=== PATIENT | male | born 1940 | race Caucasian/White ===

== ENCOUNTER 2018-07-29 08:44 | Observation (INO) | payer MEDICARE, MEDICAID ==
[~2018-07-29 08:44] MED LIST: Buffered Lidocaine 1% SYRIN* 1 ML/SYRINGE INTRADERM ONE; Famotidine IV* 10 MG/ML 2 ML (20 mg) IV ONE; Gabapentin CAP(*) 300 MG PO ONE; Lactated Ringers 1000 ML Bag* 1,000 ML IV SCH; Levalbuterol 0.63MG/3ML NEB* UNIT OF USE INH ONE
--- OUTSIDE RECORDS SUMMARY | 2018-07-29 08:48 | XMS REPORT | Continuity of Care Document ---
:1940 External Reference #:[id number] Author Name Marbella Sandhu Care Team Providers Name Role Phone Brian Benson DO Primary Care Physician Unavailable Payers Date Identification Numbers Payment Provider Subscriber Effective: 2004 Policy Number: [id number] Medicare Fermin Barnes Adina PayID: [id number] [address] [place] [address] Effective: 2015 Policy Number: [id number] [employer] Fermin Holden PayID: [id number] [address] [address] [place] [address] Policy Number: [id number] Medicaid Fermin Holden PayID: [id number] [address] [place] [address] Effective: 2016 Policy Number: [id number] [facility] Fermin Holden Expires: 2018 Group Number: 90% [address] [facility] PayID: [id number] [facility] [address] [place] [address] Onset: 2013 Policy Number: [id number] Controverted Fermin Cameron Adina Group Number: [id number] PayID: [id number] Expires: 2015 Policy Number: [id number] [facility] Fermin Cameron Adina PayID: [id number] [address] [place] [address] Onset: 2013 Policy Number: [id number] [facility] Insurance [facility] Fermin Barnes Adina Group Number: [id number] [address] [address] PayID: [id number] [address] Advance Directives Description No Information Available Problems Date Description Provider Status Onset: 03/09/2015 Full thickness rotator cuff tear Edmundo Nguyen M.D. Active Onset: 06/08/2015 Rotator cuff tear arthropathy Edmundo Nguyen M.D. Active Onset: 10/19/2016 Traumatic arthropathy of the shoulder Edmundo Nguyen M.D. Active region Family History Date Family Member(s) Observation Comments General No Current Problems General Breast Cancer General Heart Disease Social History Type Date Description Comments Sex Unknown Marital Status Lives With Son Occupation Retired Cigarette Use Negative For Quit 11 Years Ago Cigarette Use Quit 25 Years Ago ETOH Use Denies alcohol use Tobacco Use Start: Unknown End: Patient is a former smoker Unknown Recreational Drug Use Denies Drug Use Smoking Status Reviewed: 07/18/18 Patient is a former smoker Exercise Type/Frequency Exercises regularly Allergies, Adverse Reactions, Alerts Date Description Reaction Status Severity Comments 11/28/2012 Penicillin Contact dermatitis Active Medications Medication Date Status Form Strength Qnty SIG Indications Ordering Provider Ultram 04/27/ Active Tablets 50mg 40tab 1-2 by Edmundo 2014 mouthat Patrick, night as M.DKeisha needed, can take with 2 es tylenol Aspirin Low 00/00/ Active Tablets 81mg 30tab 1 po qd Unknown Dose 0000 s Paroxetine HCL 0000/ Active Tablets 10mg 30tab 1 by mouth Unknown 0000 s every day Omeprazole 00/ Active Capsules DR 20mg 90cap 1 by mouth Unknown 0000 s every day Megace Oral 00/ Active Suspension 40mg/ml 1Mont 10 Unknown 0000 h milliliters by mouth every day Tylenol 00/00/ Active Tablets 325mg as needed Unknown 0000 Methotrexate 04/08/ Hx Tablets 2.5mg Shanti Stacy 07/21/ Viral Pham Vit D / Hx 400Iu 1 daily Unknown - 2018 Fish Oil /00/ Hx Unknown - 2017 Levitra 00/ Hx Tablets 10mg 9tabs qd prn Unknown - 2017 Calcium + D3 00/ Hx Tablets 600-200mg 1 pobid Unknown 0000 - -Unit 2013 Vitamin B-12 /00/ Hx Tablets 100mcg 1 by mouth Unknown 0000 - every day 2017 Aspir-Low /00/ Hx Tablets DR 81mg 30tab 1 by mouth Unknown 0000 - s every day 2013 Caltrate 600+D 00/ Hx Chewtabs 600-400mg 1 by mouth Unknown 0000 - -Unit twice a day 2018 Immunizations Description No Information Available Vital Signs Date Vital Result Comment 07/18/2018 8:41am Height 67 inches 5'7" Weight 159.00 lb Heart Rate 68 /min BP Systolic Recheck 140 mmHg BP Diastolic Recheck 86 mmHg Respiratory Rate 16 /min Body Temperature 97.6 F BMI (Body Mass Index) 24.9 kg/m2 07/02/2018 9:36am Height 67 inches 5'7" Weight 159.00 lb Heart Rate 76 /min BP Systolic Recheck 134 mmHg BP Diastolic Recheck 80 mmHg Respiratory Rate 16 /min Body Temperature 98.6 F BMI (Body Mass Index) 24.9 kg/m2 05/28/2018 9:06am Height 67 inches 5'7" Weight 165.00 lb Heart Rate 72 /min BP Systolic Recheck 144 mmHg BP Diastolic Recheck 88 mmHg Respiratory Rate 16 /min Body Temperature 97.7 F BMI (Body Mass Index) 25.8 kg/m2 02/26/2018 9:17am Height 67 inches 5'7" Weight 159.00 lb Heart Rate 76 /min BP Systolic Recheck 132 mmHg BP Diastolic Recheck 84 mmHg Respiratory Rate 16 /min Body Temperature 975.0 F BMI (Body Mass Index) 24.9 kg/m2 01/22/2018 9:13am Height 67 inches 5'7" Weight 159.00 lb Heart Rate 76 /min BP Systolic Recheck 130 mmHg BP Diastolic Recheck 84 mmHg Respiratory Rate 16 /min Body Temperature 97.4 F BMI (Body Mass Index) 24.9 kg/m2 10/25/2017 9:34am Height 67 inches 5'7" Weight 155.00 lb Heart Rate 76 /min BP Systolic Recheck 122 mmHg BP Diastolic Recheck 78 mmHg Respiratory Rate 16 /min Body Temperature 98.0 F BMI (Body Mass Index) 24.3 kg/m2 09/20/2017 8:58am Height 67 inches 5'7" Weight 155.00 lb Heart Rate 80 /min BP Systolic Sitting 122 mmHg sitting, right arm regular cuff BP Diastolic Sitting 60 mmHg sitting, right arm regular cuff Body Temperature 97.5 F BMI (Body Mass Index) 24.3 kg/m2 06/26/2017 9:23am Height 67 inches 5'7" Weight 160.00 lb Heart Rate 80 /min BP Systolic Recheck 128 mmHg BP Diastolic Recheck 84 mmHg Respiratory Rate 16 /min Body Temperature 98.0 F BMI (Body Mass Index) 25.1 kg/m2 05/22/2017 9:22am Height 67 inches 5'7" Weight 155.00 lb Heart Rate 76 /min BP Systolic Recheck 132 mmHg BP Diastolic Recheck 86 mmHg Respiratory Rate 16 /min Body Temperature 98.0 F BMI (Body Mass Index) 24.3 kg/m2 02/20/2017 9:23am Height 65 inches 5'5" Weight 155.00 lb Heart Rate 84 /min BP Systolic Recheck 126 mmHg BP Diastolic Recheck 84 mmHg Respiratory Rate 16 /min Body Temperature 97.8 F BMI (Body Mass Index) 25.8 kg/m2 01/30/2017 7:49am Height 67 inches 5'7" Weight 155.00 lb Heart Rate 88 /min BP Systolic Recheck 126 mmHg BP Diastolic Recheck 82 mmHg Respiratory Rate 16 /min Body Temperature 97.9 F BMI (Body Mass Index) 24.3 kg/m2 10/19/2016 7:49am Height 67 inches 5'7" Weight 155.00 lb Heart Rate 76 /min BP Systolic Recheck 132 mmHg BP Diastolic Recheck 84 mmHg Respiratory Rate 16 /min Body Temperature 97.7 F BMI (Body Mass Index) 24.3 kg/m2 07/27/2016 7:50am Height 67 inches 5'7" Weight 160.00 lb Heart Rate 76 /min BP Systolic Recheck 126 mmHg BP Diastolic Recheck 84 mmHg Respiratory Rate 16 /min Body Temperature 98.3 F BMI (Body Mass Index) 25.1 kg/m2 06/22/2016 8:24am Height 67 inches 5'7" Weight 160.00 lb Heart Rate 80 /min BP Systolic Recheck 128 mmHg BP Diastolic Recheck 82 mmHg Respiratory Rate 16 /min Body Temperature 98.4 F BMI (Body Mass Index) 25.1 kg/m2 03/28/2016 8:13am Height 68 inches 5'8" Weight 130.00 lb Heart Rate 80 /min BP Systolic Recheck 142 mmHg BP Diastolic Recheck 86 mmHg Respiratory Rate 16 /min Body Temperature 98.0 F BMI (Body Mass Index) 19.8 kg/m2 02/08/2016 8:41am Height 67 inches 5'7" Weight 160.00 lb Heart Rate 72 /min BP Systolic Recheck 122 mmHg BP Diastolic Recheck 76 mmHg Respiratory Rate 16 /min Body Temperature 97.8 F BMI (Body Mass Index) 25.1 kg/m2 11/23/2015 9:53am Height 67 inches 5'7" Weight 150.00 lb Heart Rate 80 /min BP Systolic Recheck 126 mmHg BP Diastolic Recheck 84 mmHg Respiratory Rate 16 /min Body Temperature 98.0 F BMI (Body Mass Index) 23.5 kg/m2 10/12/2015 8:43am Height 68 inches 5'8" Weight 160.00 lb Heart Rate 80 /min BP Systolic Recheck 138 mmHg BP Diastolic Recheck 86 mmHg Respiratory Rate 16 /min Body Temperature 98.0 F BMI (Body Mass Index) 24.3 kg/m2 06/08/2015 8:51am Height 68 inches 5'8" Weight 130.00 lb Heart Rate 76 /min BP Systolic Recheck 130 mmHg BP Diastolic Recheck 84 mmHg Respiratory Rate 16 /min Body Temperature 98.0 F BMI (Body Mass Index) 19.8 kg/m2 04/27/2015 8:45am Height 68 inches 5'8" Weight 130.00 lb Heart Rate 80 /min BP Systolic Recheck 128 mmHg BP Diastolic Recheck 84 mmHg Respiratory Rate 16 /min Body Temperature 97.7 F BMI (Body Mass Index) 19.8 kg/m2 03/09/2015 1:44pm Height 68 inches 5'8" Weight 135.00 lb BP Systolic Recheck 130 mmHg BP Diastolic Recheck 76 mmHg Respiratory Rate 16 /min Body Temperature 97.9 F BMI (Body Mass Index) 20.5 kg/m2 11/04/2014 8:45am Height 68 inches 5'8" Weight 140.00 lb Heart Rate 80 /min BP Systolic Recheck 126 mmHg BP Diastolic Recheck 80 mmHg Respiratory Rate 16 /min Body Temperature 97.3 F Pain Level 3 BMI (Body Mass Index) 21.3 kg/m2 08/05/2014 9:28am Height 68 inches 5'8" Weight 160.00 lb Heart Rate 72 /min BP Systolic Recheck 130 mmHg BP Diastolic Recheck 84 mmHg Respiratory Rate 16 /min Body Temperature 160.0 F Pain Level 7 BMI (Body Mass Index) 24.3 kg/m2 07/22/2014 9:02am Height 68 inches 5'8" Weight 140.06 lb Heart Rate 76 /min BP Systolic Recheck 126 mmHg BP Diastolic Recheck 80 mmHg Respiratory Rate 16 /min Body Temperature 97.6 F Pain Level 5 BMI (Body Mass Index) 21.3 kg/m2 04/22/2014 9:30am Height 68 inches 5'8" Weight 130.00 lb Heart Rate 80 /min BP Systolic Recheck 124 mmHg BP Diastolic Recheck 84 mmHg Respiratory Rate 16 /min Body Temperature 97.7 F Pain Level 0 BMI (Body Mass Index) 19.8 kg/m2 04/08/2014 10:48am Height 68 inches 5'8" Weight 130.00 lb Heart Rate 80 /min BP Systolic Recheck 130 mmHg BP Diastolic Recheck 86 mmHg Respiratory Rate 16 /min Body Temperature 98.0 F Pain Level 4 BMI (Body Mass Index) 19.8 kg/m2 Results Description No Information Available Procedures Date Code Description Status 07/18/201861240 Inject/Drain Joint/Bursa Major W/O US Completed 05/28/201890117 Inject/Drain Joint/Bursa Major W/O US Completed 02/26/201826398 Inject/Drain Joint/Bursa Major W/O US Completed 01/22/201814051 Inject/Drain Joint/Bursa Major W/O US Completed 10/25/2017 15625 Inject/Drain Joint/Bursa Major W/O US Completed 09/20/201767500 Inject/Drain Joint/Bursa Major W/O US Completed 06/26/201755570 Inject/Drain Joint/Bursa Major W/O US Completed 05/22/201790755 Inject/Drain Joint/Bursa Major W/O US Completed 05/22/201713907 Inject/Drain Joint/Bursa Major W/O US Completed 02/20/201725568 Inject/Drain Joint/Bursa Major W/O US Completed 01/30/201757682 Inject/Drain Joint/Bursa Major W/O US Completed 10/19/201676858 Inject/Drain Joint/Bursa Major W/O US Completed 10/19/201673644 Inject/Drain Joint/Bursa Major W/O US Completed 07/27/201697696 Inject/Drain Joint/Bursa Major W/O US Completed 06/22/201607474 Inject/Drain Joint/Bursa Major W/O US Completed 03/28/201649781 Inject/Drain Joint/Bursa Major W/O US Completed 03/28/201648456 Inject/Drain Joint/Bursa Major W/O US Completed 02/08/201653810 Inject/Drain Joint/Bursa Major W/O US Completed 11/23/2015 Inject/Drain Joint/Bursa Major W/O US Completed 10/12/2015 29416 Inject Tendon Sheath Or Ligament Aponeurosis Eg Plantar Completed Fascia 06/08/201587602 Inject/Drain Joint/Bursa Major W/O US Completed 03/09/201526705 Inject/Drain Joint/Bursa Major W/O US Completed 08/05/201448562 Inject/Drain Joint/Bursa Major W/O US Completed 08/05/201494510 Inject/Drain Joint/Bursa Major W/O US Completed 07/22/201444124 Inject/Drain Joint/Bursa Major W/O US Completed 04/22/201417539 Inject/Drain Joint/Bursa Major W/O US Completed 04/08/201465441 Inject/Drain Joint/Bursa Major W/O US Completed Encounters Type Date Location Provider Dx Diagnosis Office Visit 05/28/2018 Orthopedic Eliot Colin2.511 Traumatic 9:30a [facility] M.DKeisha arthropathy, [place] right shoulder Office Visit 02/08/2016 Debbie Vides.121 Complete 9:00a [facility] M.D. 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 osteoarthritis, AT [place] right shoulder Office Visit 10/12/2015 Radha Lewis.122 Complete rotatr-cuff 9:00a [facility] M.D. tear/ruptr of left AT [place] shoulder, not trauma M19.112 Post-traumatic osteoarthritis, left shoulder Office Visit 04/27/2015 9:00a Radha Lewis.122 Complete [facility] M.D. rotatr-cuff AT [place] tear/ruptr of left shoulder, not trauma M19.112 Post-traumatic osteoarthritis, left shoulder Office Visit 03/09/2015 2:15p Orthopedic Edmundo M75.122 Complete [facility] Nguyen M.D. rotatr-cuff AT [place] tear/ruptr of left shoulder, not trauma M19.112 Post-traumatic osteoarthritis, left shoulder Office Visit 11/04/2014 9:15a Orthopedic Shanti Stacy, 719.41 [facility] M.D. Shoulder Region AT [place] 715.31 Osteoarthrosis Localzd Not Spec Prime Or 2Ndy Shoulder Office Visit 11/04/2014 9:00a Orthopedic Shanti Stacy 719.41 [facility] M.D. Shoulder Region AT [place] 719.41 Pain Joint Shoulder Region 715.31 Osteoarthrosis Localzd Not Spec Prime Or 2Ndy Shoulder Office Visit 04/22/2014 9:30a Orthopedic Shanti Stacy 719.41 [facility] M.D. Shoulder Region AT [place] Office Visit 04/08/2014 10:45a Orthopedic Shanti Stacy, 719.41 [facility] M.D. Shoulder Region AT [place] 787.20 Dysphagia, Unspecified Office Visit 10/01/2012 1:00p Orthopedic Edmundo Nguyen, 840.4 [facility] M.Cayetano Strains Rotator AT [place] Cuff (Capsule) Plan of Treatment Future Appointment(s):11/21/2018 8:00 am - Edmundo Nguyen M.D. at [facility] AT Mureukxw06/25/2019 9:30 am - Edmundo Nguyen M.D. at [facility]/18/2018 - Edmundo Nguyen M.D.M75.122 Complete rotator cuff tear or rupture of left shoulder, notM19.112 Post-traumatic osteoarthritis, left shoulderFollow up:4 months
--- OUTSIDE RECORDS SUMMARY | 2018-07-29 08:48 | XMS REPORT | Continuity of Care Document ---
:1939 External Reference #:[id number] Author Name Sam Locoina Care Team Providers Name Role Phone Brian Benson DO Primary Care Physician Unavailable Payers Date Identification Numbers Payment Provider Subscriber Effective: 2004 Policy Number: [id number] Medicare Fermin Barnes Adina PayID: [id number] [address] [place] [address] Effective: 2015 Policy Number: [id number] [employer] Fermin Holden PayID: [id number] [address] [address] [place] [address] Policy Number: [id number] Medicaid Fermin Holden PayID: [id number] [address] [place] [address] Effective: 2016 Policy Number: [id number] [facility] Fermin Holden Expires: 2018 Group Number: 90% [id number] [facility] PayID: [id number] [facility] [address] [place] [address] Onset: 2013 Policy Number: [id number] Controverted Fermin Holden Group Number: [id number] PayID: [id number] Expires: 2015 Policy Number: [id number] [facility] Fermin Cameron Adina PayID: [id number] [address] [place] [address] Onset: 2013 Policy Number: [id number] [facility] Insurance [facility] Fermin Barnes Adina Group Number: [id number] [address] [address] PayID: [id number] [address] Advance Directives Description No Information Available Problems [...] Use Denies Drug Use Smoking Status Reviewed: 07/02/18 Patient is a former smoker Exercise Type/Frequency [...] Available Vital Signs Date Vital Result Comment 07/02/2018 9:36am Height 67 inches 5'7" Weight [...] Information Available Procedures Date Code Description Status 05/28/2018 16094 Inject/Drain Joint/Bursa Major W/O US Completed 02/26/2018 11254 Inject/Drain Joint/Bursa Major W/O US Completed 01/22/2018 77585 Inject/Drain Joint/Bursa Major W/O US Completed 10/25/2017 63380 Inject/Drain Joint/Bursa Major W/O US Completed 09/20/2017 33375 Inject/Drain Joint/Bursa Major W/O US Completed 06/26/2017 27928 Inject/Drain Joint/Bursa Major W/O US Completed 05/22/2017 54759 Inject/Drain Joint/Bursa Major W/O US Completed 05/22/2017 80637 Inject/Drain Joint/Bursa Major W/O US Completed 02/20/2017 77660 Inject/Drain Joint/Bursa Major W/O US Completed 01/30/2017 79307 Inject/Drain Joint/Bursa Major W/O US Completed 10/19/2016 16559 Inject/Drain Joint/Bursa Major W/O US Completed 10/19/2016 03399 Inject/Drain Joint/Bursa Major W/O US Completed 07/27/2016 67821 Inject/Drain Joint/Bursa Major W/O US Completed 06/22/2016 51516 Inject/Drain Joint/Bursa Major W/O US Completed 03/28/2016 16100 Inject/Drain Joint/Bursa Major W/O US Completed 03/28/2016 58644 Inject/Drain Joint/Bursa Major W/O US Completed 02/08/2016 34333 Inject/Drain Joint/Bursa Major W/O US Completed 11/23/2015 61474 Inject/Drain Joint/Bursa Major W/O US Completed 10/12/2015 31187 Inject Tendon Sheath Or Ligament Aponeurosis Eg Plantar Completed Fascia 06/08/2015 Inject/Drain Joint/Bursa Major W/O US Completed 03/09/2015 Inject/Drain Joint/Bursa Major W/O US Completed 08/05/2014 Inject/Drain Joint/Bursa Major W/O US Completed 08/05/2014 Inject/Drain Joint/Bursa Major W/O US Completed 07/22/2014 Inject/Drain Joint/Bursa Major W/O US Completed 04/22/2014 Inject/Drain Joint/Bursa Major W/O US Completed 04/08/2014 Inject/Drain Joint/Bursa Major W/O US Completed Encounters Type Date Location Provider Dx Diagnosis Office Visit 05/28/2018 Orthopedic Keiry Colin.511 Traumatic 9:30a [facility] M.D. arthropathy, [place] right shoulder Office Visit 02/08/2016 Debbie Vides.121 Complete 9:00a [facility] M.D. 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 osteoarthritis, AT [place] right shoulder Office Visit 10/12/2015 Radha Lewis.122 Complete rotatr-cuff 9:00a [facility] Nguyen M.D. tear/ruptr of left AT [place] shoulder, not trauma M19.112 Post-traumatic osteoarthritis, left shoulder Office Visit 04/27/2015 9:00a Radha Lewis.122 Complete [facility] M.D. rotatr-cuff AT [place] tear/ruptr of left shoulder, not trauma M19.112 Post-traumatic osteoarthritis, left shoulder Office Visit 03/09/2015 2:15p Radha Lewis.122 Complete [facility] M.D. rotatr-cuff AT [place] tear/ruptr of left shoulder, not trauma M19.112 Post-traumatic osteoarthritis, left shoulder Office Visit 11/04/2014 9:15a Orthopedic Shanti Stacy, 719.41 [facility] [place] Shoulder Region AT [place] 715.31 Osteoarthrosis Localzd Not Spec Prime Or 2Ndy Shoulder Office Visit 11/04/2014 9:00a Orthopedic Shanti Stacy, 719.41 [facility] M.D. Shoulder Region AT [place] 719.41 Pain Joint Shoulder Region 715.31 Osteoarthrosis Localzd Not Spec Prime Or 2Ndy Shoulder Office Visit 04/22/2014 9:30a Orthopedic Shanti Stacy, 719.41 [facility] M.DKeisha Shoulder Region AT [place] Office Visit 04/08/2014 10:45a Orthopedic Shanti Stacy, 719.41 [facility] M.Cayetano Shoulder Region AT [place] 787.20 Dysphagia, Unspecified Office Visit 10/01/2012 1:00p Orthopedic Edmundo Nguyen, 840.4 [facility] Viral Strains Rotator AT [place] Cuff (Capsule) Plan of Treatment Future Appointment(s):09/26/2018 9:30 am - Edmundo Nguyen M.D. at [facility] AT Zhbcfwwp97/26/2019 - Edmundo Nguyen M.D.M12.511 Traumatic arthropathy, right shoulderFollow up:10 days after surgery
--- OUTSIDE RECORDS SUMMARY | 2018-07-29 08:48 | XMS REPORT | Continuity of Care Document ---
:1940 External Reference #:[id number] Author Name Karen Almaguer Care Team Providers Name Role Phone Brian Benson DO Primary Care Physician Unavailable Payers Date Identification Numbers Payment Provider Subscriber Effective: 2004 Policy Number: [id number] Medicare Fermin Cameron Adina PayID: [id number] [address] [place] [address] Effective: 2015 Policy Number: [id number] [employer] Fermin Dunlapisidra PayID: [id number] [address] [address] [place] [address] Policy Number: [id number] Medicaid Fermin Holden PayID: [id number] [address] [place] [address] Effective: 2016 Policy Number: [id number] [facility] Fermin Holden Expires: 2018 Group Number: 90% [id number] [facility] PayID: [id number] [address] Onset: 2013 Policy Number: [id number] Controverted Fermin Holden Group Number: [id number] PayID: [id number] Expires: 2015 Policy Number: [id number] [facility] Fermin Cameron Adina PayID: [id number] [address] [place] [address] Onset: 2013 Policy Number: [id number] [facility] Insurance [facility] Fermin Barnes Adina Group Number: [id number] [address] [address] PayID: [id number] [address] Advance Directives Description No Information Available Problems [...] BMI (Body Mass Index) 19.8 kg/m2 Results Test Date Facility Test Result H/L Range Note CBC Auto Diff 07/19/2018 [facility] White Blood 20.1 10^3/uL High 3.5-10.[address] [place] [address] [phone] Red Blood Count 4.71 10^6/uL N 4.18-5.48 Hemoglobin 14.8 g/dL N 14.0-18.0 Hematocrit 44 % N 36-46 Mean Corpuscular Volume 94 fL N 80-94 Mean Corpuscular Hemoglobin 31 pg N 27-31 Mean Corpuscular HGB Conc 33 g/dL N 31-36 Red Cell Distribution Width 13 % N 10.5-15 Platelet Count 368 10^3/uL N 150-450 Mean Platelet Volume 8.3 fL N 7.4-10.4 Abs Neutrophils 17.1 10^3/uL High 1.5-7.7 Abs Lymphocytes 1.9 10^3/uL N 1.0-4.8 Abs Monocytes 1.1 10^3/uL High 0-0.8 Abs Eosinophils 0 10^3/uL N 0-0.6 Abs Basophils 0 10^3/uL N 0-0.2 Abs Nucleated RBC 0 10^3/uL Granulocyte % 85.0 % Lymphocyte % 9.7 % Monocyte % 5.3 % Eosinophil % 0 % Basophil % 0 % Nucleated Red Blood Cells % 0 Urinalysis Profile 07/19/2018 [facility] Urine Color Yellow [address] [place], [place] [id number] [phone] Urine Appearance Cloudy Urine Specific [place] 1.027 N 1.010-1.030 Urine pH 5.0 N 5-9 Urine Urobilinogen Negative Negative Urine Ketones Trace Abnormal Negative Urine Protein Negative Negative Urine Leukocytes 1+ Abnormal Negative Urine Blood Negative Negative * * Abnormal Negative 1 Urine Nitrite Negative Negative Urine Bilirubin Negative Negative Urine Glucose Negative Negative Urine White Blood Cell 3+(>20/hpf) Abnormal Absent Urine Red Blood Cell 2+(6-10/hpf) Abnormal Absent Urine Bacteria 1+ Abnormal Absent Urine Squamous Epithelial Cell Present Abnormal Absent Comp Metabolic Panel 07/19/2018 [facility] Sodium 139 mmol/L N 135-145 [place] [address] [phone] Potassium 4.2 mmol/L N 3.5-5.0 Chloride 104 mmol/L N 101-111 Co2 Carbon Dioxide 24 mmol/L N 22-32 Anion Gap 11 mmol/L N 2-11 Glucose 105 mg/dL High 70-100 Blood Urea Nitrogen 21 mg/dL N 6-24 Creatinine 1.00 mg/dL N 0.67-1.17 BUN/Creatinine Ratio 21.0 High 8-20 Calcium 9.7 mg/dL N 8.6-10.3 Total Protein 7.6 g/dL N 6.4-8.9 Albumin 4.7 g/dL N 3.2-5.2 Globulin 2.9 g/dL N 2-4 Albumin/Globulin Ratio 1.6 N 1-3 Total Bilirubin 0.60 mg/dL N 0.2-1.0 Alkaline Phosphatase 140 U/L High 34-104 Alt 10 U/L N 7-52 Ast 18 U/L N 13-39 Egfr Non- 72.3 >60 Egfr 87.4 >60 2 Inr/Protime 07/19/2018 [facility] Inr 0.90 N 0.77-1.02 [address] [place] [address] [phone] Laboratory test 07/19/2018 [facility] Partial 29.1 seconds N 26.0-36.[address] [place] [address] PTT [phone] Type & Screen 07/19/2018 [facility] Patient O Positive [address] [place] [address] [phone] Antibody Screen NEGATIVE Urine Culture And 07/19/2018 [facility] Urine Culture SEE RESULT [address] [place] [address] [phone] 1 *Ascorbic acid is present which may interfere with detection of blood. 2 Because ethnic data is not always readily available, this report includes an eGFR for both -Americans and non- Americans. The National Kidney Disease Education Program (NKDEP) does not endorse the use of the MDRD equation for patients that are not between the ages of 18 and 70, are , have extremes of body size, muscle mass, or nutritional status, or are non- or non-. According to the National Kidney Foundation, irrespective of diagnosis, the stage of the disease is based on the level of kidney function: Stage Description GFR(mL/min/1.73 m(2)) 1 Kidney damage with normal or decreased GFR 90 2 Kidney damage with mild decrease in GFR 60-89 3 Moderate decrease in GFR 30-59 4 Severe decrease in GFR 15-29 5 Kidney failure <15 (or dialysis) 3 SEE RESULT BELOW Name: FERMIN HOLDEN : [address]: Edmundo Nguyen MD Acct: [id number] Unit: [id number] AGE: 77 Location: [facility] Re07/19/18 SEX: M Status: REG REF SPEC: [id number] [place]: 07/19/18-[address] [facility] [address]: Edmundo Nguyen MD REQ: [id number] RECD: 07/19/18 STATUS: COMP _ SOURCE: URINE SPDESC: ORDERED: Urine Culture QUERIES: Urine Source: Random Procedure Result Reported Site Urine Culture Final 07/21/18- 0812 ML Organism 1 ENTEROCOCCUS FAECALIS Campbell Count 50-75,000 (Many) CFU/ML 1. ENTEROCOCCUS FAECALIS M.I.C. RX --------- ------ Ampicillin <=2 S Penicillin 4 S Ciprofloxacin <=0.5 S Gentamicin High Level S Levofloxacin 1 S Nitrofurantoin <=16 S * Quinupristin/Dalfopristin 4 R * Streptomycin High Level S Tetracycline <=1 S Doxycycline - Deduced S * Minocycline - Deduced S Tigecycline <=0.12 S Vancomycin 1 S Imipenem-Deduced S * Ampicillin/Sulbactam-Deduced S * These antibiotics are not available in the [facility] Formulary Contact the Microbiology Department for any additional antibiotic reporting. * ML - Main Lab . END OF REPORT DEPARTMENT OF PATHOLOGY, [address] [place] [address] Shyam Luna M.D. Director [facility] # [id number] Procedures Date Code Description Status 07/18/201888645 Inject/Drain Joint/Bursa Major W/O US Completed 05/28/201879752 Inject/Drain Joint/Bursa Major W/O US Completed 02/26/201895461 Inject/Drain Joint/Bursa Major W/O US Completed 01/22/201864425 Inject/Drain Joint/Bursa Major W/O US Completed 10/25/2017 49368 Inject/Drain Joint/Bursa Major W/O US Completed 09/20/201789565 Inject/Drain Joint/Bursa Major W/O US Completed 06/26/2017 50401 Inject/Drain Joint/Bursa Major W/O US Completed 05/22/2017 56657 Inject/Drain Joint/Bursa Major W/O US Completed 05/22/2017 07150 Inject/Drain Joint/Bursa Major W/O US Completed 02/20/201784649 Inject/Drain Joint/Bursa Major W/O US Completed 01/30/2017 66879 Inject/Drain Joint/Bursa Major W/O US Completed 10/19/201688307 Inject/Drain Joint/Bursa Major W/O US Completed 10/19/201606832 Inject/Drain Joint/Bursa Major W/O US Completed 07/27/201685843 Inject/Drain Joint/Bursa Major W/O US Completed 06/22/2016 79898 Inject/Drain Joint/Bursa Major W/O US Completed 03/28/201665344 Inject/Drain Joint/Bursa Major W/O US Completed 03/28/201661714 Inject/Drain Joint/Bursa Major W/O US Completed 02/08/201696125 Inject/Drain Joint/Bursa Major W/O US Completed 11/23/201527081 Inject/Drain Joint/Bursa Major W/O US Completed 10/12/2015 90516 Inject Tendon Sheath Or Ligament Aponeurosis Eg Plantar Completed Fascia 06/08/201566316 Inject/Drain Joint/Bursa Major W/O US Completed 03/09/2015 [...] Orthopedic Eliot Colin2.511 Traumatic 9:30a [facility] MEGHA Andres.Cayetano arthropathy, [place] right shoulder Office Visit 02/08/2016 Orthopedic Debbie Colin.121 Complete 9:00a [facility] M.D. 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 osteoarthritis, AT [place] right shoulder Office Visit 10/12/2015 Radha Lewis.122 Complete rotatr-cuff 9:00a [facility] Nguyen M.D. tear/ruptr of left AT [place] shoulder, not trauma M19.112 Post-traumatic osteoarthritis, left shoulder Office Visit 04/27/2015 9:00a Radha Lewis.122 Complete [facility] Nguyen M.D. rotatr-cuff AT [place] tear/ruptr of left shoulder, not trauma M19.112 Post-traumatic osteoarthritis, left shoulder Office Visit 03/09/2015 2:15p Radha Lewis.122 Complete [facility] Nguyen M.D. rotatr-cuff AT [place] tear/ruptr of left shoulder, not trauma M19.112 Post-traumatic osteoarthritis, left shoulder Office Visit 11/04/2014 9:15a Orthopedic Shanti Stacy, 719.41 [facility] [place] Shoulder Region AT [place] 715.31 Osteoarthrosis Localzd Not Spec Prime Or 2Ndy Shoulder Office Visit 11/04/2014 9:00a Orthopedic Shanti Stacy, 719.41 [facility] M.D. Shoulder Region AT Skip 719.41 Pain Joint Shoulder Region 715.31 Osteoarthrosis Localzd Not Spec Prime Or 2Ndy Shoulder Office Visit 04/22/2014 9:30a Orthopedic Shanti Stacy, 719.41 [facility] M.D. Shoulder Region AT [place] Office Visit 04/08/2014 10:45a Orthopedic Shanti Stacy, 719.41 [facility] M.D. Shoulder Region AT [place] 787.20 Dysphagia, Unspecified Office Visit 10/01/2012 1:00p Orthopedic Edmundo Nguyen, 840.4 Sprains & [facility] Dmitry.Cayetano Strains Rotator AT [place] Cuff (Capsule) Plan of Treatment Future Appointment(s):07/29/2018 9:30 am - ADA Rand at [facility]11/21/2018 8:00 am - Edmundo Nguyen M.D. at [facility] AT Nydmjnzo85/25/2019 9:30 am - Edmundo Nguyen M.D. at [facility]07/18/2018 - Edmundo Nguyen M.D.M75.122 Complete rotator cuff tear or rupture of left shoulder, notM19.112 Post-traumatic osteoarthritis, left shoulderFollow up:4 months
[2018-07-29] MEDS ORDERED: Clindamycin 900 MG/D5W BAG(*) 0 MG/0 ML BAG IVPB ONE (08:50)
[2018-07-29] MEDS ORDERED: Buffered Lidocaine 1% SYRIN* 1 ML/SYRINGE INTRADERM ONE (08:51)
[2018-07-29] MEDS ORDERED: Propofol* 10 MG/ML 20 ML BTL ONE (08:58)
[2018-07-29] MEDS ORDERED: fentaNYL* 50 MCG/ML 2 ML VIAL (100 MCG VIAL) ONE (08:58)
[2018-07-29] MEDS ORDERED: ROPIVACAINE 5 MG/ML 30 ML BTL (0.5%) ONE (08:58)
[2018-07-29] MEDS ORDERED: Lidocaine 2% PF * 5 ML VIAL ONE (08:58)
[2018-07-29] MEDS ORDERED: Ondansetron INJ* 2 MG/ML VIAL ONE (08:58)
[2018-07-29] MEDS ORDERED: Cisatracurium* 2 MG/ML MDV 5 ML ONE (08:58)
[2018-07-29] MEDS ORDERED: Levalbuterol 0.63MG/3ML NEB* UNIT OF USE INH ONE (08:58)
[2018-07-29] MEDS ORDERED: Midazolam* 1 MG/ML 10 ML VIAL (10 MG) ONE (08:58)
[2018-07-29] MEDS ORDERED: KETAMINE HCL* 50 MG/ML 10 ML VIAL ONE (08:58)
[2018-07-29] MEDS ORDERED: Phenylephrine 10 MG/ML VIAL* 1 ML VIAL ONE (08:58)
[2018-07-29] MEDS ORDERED: Famotidine IV* 10 MG/ML 2 ML (20 mg) ONE (08:58)
[2018-07-29] MEDS ORDERED: Dexamethasone IV* 4 MG/ML 1 ML (4 MG) ONE (08:58)
[2018-07-29] MEDS ORDERED: Gabapentin CAP(*) 300 MG ONE (08:58)
[2018-07-29] MEDS ORDERED: ceFAZolin 2 GM in NS PREMIX(*) 2 GM/100 ML BAG IVPB ONE (09:44)
[2018-07-29] MEDS ORDERED: Bupivacaine 0.5% W/EPI SDV* 30 ML VIAL ONE (10:46)
[2018-07-29] MEDS ORDERED: EPHEDrine (Pressors)* 50 MG/ML VIAL ONE (11:28)
[2018-07-29] MEDS ORDERED: Ketorolac INJ* 30 MG/ML 1 ML VIAL ONE (12:32)
[2018-07-29] MEDS ORDERED: Naloxone* 0.4 MG/ML 1 ML VIAL IV PRN (12:45)
[2018-07-29] MEDS ORDERED: Levalbuterol 0.63MG/3ML NEB* UNIT OF USE INH PRN (12:45)
[2018-07-29] MEDS ORDERED: Ondansetron INJ* 2 MG/ML VIAL IV PRN ×2 (12:45→13:13)
[2018-07-29] MEDS ORDERED: Acetaminophen IV 1GM/100ML * 1,000 MG/100 ML VIAL IVPB ONE (12:45)
[2018-07-29] MEDS ORDERED: fentaNYL* 50 MCG/ML 2 ML VIAL (100 MCG VIAL) IV PRN (12:45)
[2018-07-29] MEDS ORDERED: Magnesium Hydroxide LIQ* 30 ML UDC PO PRN (13:13)
[2018-07-29] MEDS ORDERED: Morphine INJ* 2 MG/ML 1 ML SYRINGE (TWO MG - NEW SYRINGE VERSION) IV PRN (13:13)
[2018-07-29] MEDS ORDERED: diPHENhydraMINE PO* 25 MG PO PRN (13:13)
[2018-07-29] MEDS ORDERED: diPHENhydraMINE IV* 50 MG/ML 1 ml VIAL (BENADRYL) IV PRN (13:13)
[2018-07-29] MEDS ORDERED: oxyCODONE TAB* 5 MG TAB PO PRN (13:13)
[2018-07-29] MEDS ORDERED: Cyclobenzaprine TAB* 10 MG PO PRN (13:13)
[2018-07-29] MEDS ORDERED: Ondansetron ODT TAB* 4 MG PO PRN (13:13)
[2018-07-29] MEDS ORDERED: PTO: Albuterol HFA INHALER* 8 gm MDI INH PRN (13:17)
[2018-07-29] MEDS ORDERED: Nitroglycerin TAB 0.4 MG* 0.4 MG TAB SL PRN (13:17)
[2018-07-29] MEDS ORDERED: Acetaminophen IV 1GM/100ML * 100 ML ONE (13:57)
--- NOTE | 2018-07-29 14:44 | OP ---
DATE OF OPERATION: 07/29/18 - ROOM #349 DATE OF : 38 SURGEON: Edmundo Nguyen MD. HR BUSINESS PARTNER CONSULTANT: Shavonne Prakash RPA. ANESTHESIA: Regional and general. PRE-OP DIAGNOSIS: Right shoulder traumatic arthropathy. POST-OP DIAGNOSIS: Right shoulder traumatic arthropathy. OPERATIVE PROCEDURE: Right reverse total shoulder arthroplasty. ESTIMATED BLOOD LOSS: 100 cc. COMPLICATIONS: None. HARDWARE: [employer] reverse shoulder small glenoid with 36 mm eccentric sphere two screws 16 mm stem with reverse socket plus 3 mm liner. SUMMARY: Mr. Carlisle is a 77-year-old male who has a long history of troubles with both of his shoulders. Many years ago, he had undergone rotator cuff repairs, but these eventually did fail as both shoulders have significant rotator cuff tears. On plain x-ray, it could seen how his humeral head sits on the underside of the acromion and he is residential out of joint. He has significant troubles with trying to lift the arms beyond 60 degrees of forward elevation and cannot even get the 45 degrees of abduction. He has undergone conservative treatment for years, which was good, so it helped with his pain, but it was not very good for function. Recently, he has been losing effectiveness with steroid injections and I discussed with him that a reverse shoulder arthroplasty should work well to decrease his pain. Sometimes, function can be improved with the deltoid now functioning as the day care provider of the arm, but I had warned him that the procedure was more for pain relief and not for tenriism of function. Risks of surgery such as infection, scar formation , stiffness, instability and hardware failure were some of the risks discussed. He had been declared medically optimized and wished to proceed. DESCRIPTION OF PROCEDURE: The patient had a block placed in the holding area and was brought back to the OR. General endotracheal anesthesia was established. He was then sat up in the beach chair position. Care was taken to make sure that his left arm was nicely padded an his cubital tunnel was nice and free. The right shoulder area was prepped and then draped. Skin incision was made beginning just above the coracoid and carried downwards towards the humeral shaft. Incision was carried own through the skin and subcutaneous tissues. Small bleeders encountered were ligated using electrocautery. Blunt dissection was then carried down to the deltoid fascia and I could see fat stripe and one small spot which appeared to be cephalic vein. Dissection continued in that direction and I did find cephalic vein. Cephalic vein wanted to come laterally and dissection was carried out through that to the medial side of the cephalic vein. Deltoid retractor was placed and humeral head shifted out fluid out of place. He had a known rotator cuff tear as well as a longstanding biceps tendon tear and I thought I could feel which was the groove , but I thought he still had a little bit of his subscap intact, but there was no subscap tendon present. With starting 0.5 cm to what I thought was 0.5 cm medial to what I thought was the bicipital groove, all I encountered was capsule , which then peeled itself back and down exposing the humeral head. I did not even have to come in any way superior as there was no supraspinatus, but there was an infraspinatus still present. Awl was then used to open the humeral head and the intramedullary guide was placed. Outrigger was dissembled and cutting guide was then pinned into place. Intramedullary guide was removed and the humeral head cut was taken. It appeared a nice cut was obtained. Cover was placed over the shaft and this was subluxed posteriorly giving exposure to the glenoid. It could be seen that he still had labrum present as well as some cartilage on the glenoid. Pickle fork was then placed posteriorly and this gave nice exposure, where I had a straight shot at the glenoid. Labrum was sharply taken down and cross were made so that I could center my guidewire right into the glenoid. Guidewire was placed and nice bite was obtained. Reamer was run and remaining cartilage was taken and bone reamings were then taken as well. Drill was then run for the central stud and guidewire was then removed. Small glenoid was then impacted into place. Nice solid bite had been obtained. Two screws were placed and the inferior screw seemed to stay within the body of the scapula as I headed endpoint, so a 35 screw was used there and at the top I came through the cortex at about 20 mm and a 20 mm screw was placed superiorly. I templated both 36 and 40 mm glenospheres, but because his alignment was so far up, I was unable to get them perfectly aligned. Considering he appeared smaller than what I had templated, I went with the 36 mm eccentric glenosphere. This was impacted into place and a screw was then squeaked into tightness there. Attention was returned to the proximal humerus. Cap was removed and different size stems were placed. With the 16, I had a nice bite and I could lift the humerus. On the back table, stem piece was then assembled to allow for the reaming of the proximal humerus. Assembly was then placed and reamer was run over the peg until the peg blocked a K- wire from being able to be passed through. Once this was done, the implant was assembled on the back table and then was impacted into place. I had a little rigid bone inferiorly and this was nibbled down using the rongeur. He was then trialed with a 0 liner and, with the 0 liner with external rotation and abduction, he would tend to lever opening the joint. He was then trialed with a +3 and the + 3 did not lever and seem to be nice and stable throughout his range of motion. +3 liner was called for and impacted into place. He had the same wonderful motion and stability with that liner. Shoulder was copiously pulse lavaged. I looked for remnants of the capsule, but I could not find the small piece that had peeled back on it on and that even may have just been synovium as it had opened itself just when I had released where I would have started the subscap peel. He was again taken through range of motion so I could convince myself he was stable without any sort of anterior repair and the deltopectoral interval was closed using interrupted 2-0 Vicryl sutures while bearing the cephalic vein. Wound was again copiously pulse lavaged and subcutaneous tissues were reapproximated with 2-0 Vicryl. Skin was closed using running Monocryl. Sterile dressing and a shoulder immobilizer were applied in the OR. The patient was then extubated in the OR and was stable on transfer to the recovery room. [id number]/[facility] #: [id number] LD
[2018-07-29] MEDS: D5W 1/2 NS 1000 ML BAG* 1,000 ML IV SCH (16:19)
[2018-07-29] MEDS ORDERED: Aspirin EC TAB* 81 MG TAB.EC PO SCH (17:00)
[2018-07-29] MEDS: traMADol TAB* 50 MG PO SCH (17:39)
[2018-07-29] MEDS: Clindamycin 600 MG/D5W BAG(*) 600 MG/50 ML BAG IV SCH (20:15)
[2018-07-29] MEDS: Magnesium Hydroxide LIQ* 30 ML UDC PO SCH (20:26)
[2018-07-29] MEDS: Docusate CAP* 100 MG PO SCH (20:26)
[2018-07-29] MEDS: Multivitamins/Mins (NF) AREDS2 1 CAP CAP PO SCH (20:26)
[2018-07-29] MEDS ORDERED: Tiotropium Respimt 2.5 mcg(NF) 1 PUFF MDI INH SCH (21:00)
[2018-07-29] MEDS: Acetaminophen TAB* 325 MG PO SCH (22:33)
[2018-07-30] MEDS: traMADol TAB* 50 MG PO SCH ×3 (00:12→12:43)
[2018-07-30] MEDS: Clindamycin 600 MG/D5W BAG(*) 600 MG/50 ML BAG IV SCH ×2 (03:24→11:27)
[2018-07-30] MEDS: D5W 1/2 NS 1000 ML BAG* 1,000 ML IV SCH (03:24)
[2018-07-30] MEDS: Acetaminophen TAB* 325 MG PO SCH (05:52)
[2018-07-30 05:56] LABS: Hematocrit 40 % (36-46); Hemoglobin 13.3 g/dL (14.0-18.0); Mean Platelet Volume 7.7 fL (7.4-10.4); Platelet Count 295 10^3/uL (150-450)
[2018-07-30 06:16] LABS: Calcium 8.8 mg/dL (8.6-10.3); Potassium 4.2 mmol/L (3.5-5.0)
[2018-07-30 06:22] LABS: BUN/Creatinine Ratio 13.5 (8-20); EGFR Non-African American 82.7 (>60)
[2018-07-30] MEDS: Magnesium Hydroxide LIQ* 30 ML UDC PO SCH (07:41)
[2018-07-30] MEDS: Docusate CAP* 100 MG PO SCH (07:41)
[2018-07-30] MEDS: Multivitamins/Mins (NF) AREDS2 1 CAP CAP PO SCH (07:54)
[2018-07-30 08:16] VITALS: BP 127/63
[2018-07-30] MEDS ORDERED: Heparin VIAL(*) 5000 UNITS/ML VIAL (FIVE THOUSAND) SUBCUT SCH (09:00)
[2018-07-30] MEDS ORDERED: Pantoprazole TAB * 40 MG TAB PO SCH (09:00)
--- NOTE | 2018-07-30 11:38 | PN ---
Progress Note - Progress Note Date of Service: 07/30/18 SOAP: Subjective: [] Patient seen and examined at bedside. He feels well, pain is well controlled. He denies CP, SOB, dizziness, nausea. Right shoulder pain is well controlled, he has no numbness or tingling into the RUE. Desires DC home Objective: []General: Well appearing, NAD, family at bedside RUE: Sling in place. Right shoulder dressing changed, incision CDI with well approximated wound edges without erythema or discharge. Redressed with betadine , telfa, guaZe and tape. Cryo cuff in use and replaced. Calves supple and nontender without erythema, edema or palpable cords Assessment: []POD 1 sp right total shoulder reverse arthroplasty Dr Nguyen Plan: []NWB RUE. No active ROM, okay passive ROM shoulder 90 deg FF, ABD and 25 deg ER. Okay for PT/OT DC home today Vital Signs Temp 97.3 F 07/30/18 07:33 Pulse 88 07/30/18 08:00 Resp 16 07/30/18 07:45 BP 127/63 07/30/18 07:33 Pulse Ox 98 07/30/18 07:45 Intake & Output 07/29/18 07/30/18 07/30/18 18:59 06:59 18:59 Intake Total 2170 705 320 Output Total 425 425 Balance 1745 280 320 Weight 156 lb Intake: IV Fluids 2049 55 ABX - CLINDAMYCIN 55 LR 2000 NS 50ML, Cefazolin 2G 50 Oral 120 650 320 Output: Urine 425 425 Other: Estimated Void Large Medium # Bowel Movements 0 # Voids 1 1 Laboratory Last Values WBC 12.3 10^3/uL (3.5-10.8) H 07/29/18 09:18 Hgb 13.3 g/dL (14.0-18.0) L 07/30/18 05:42 Hct 40 % (36-46) 07/30/18 05:42 Plt Count 295 10^3/uL (150-450) 07/30/18 05:42 MPV 7.7 fL (7.4-10.4) 07/30/18 05:42 Sodium 138 mmol/L (135-145) 07/30/18 05:42 Potassium 4.2 mmol/L (3.5-5.0) 07/30/18 05:42 Chloride 104 mmol/L (101-111) 07/30/18 05:42 Carbon Dioxide 24 mmol/L (22-32) 07/30/18 05:42 Anion Gap 10 mmol/L (2-11) 07/30/18 05:42 BUN 12 mg/dL (6-24) 07/30/18 05:42 Creatinine 0.89 mg/dL (0.67-1.17) 07/30/18 05:42 Est GFR ( Amer) 100.0 (>60) 07/30/18 05:42 Est GFR (Non-Af Amer) 82.7 (>60) 07/30/18 05:42 BUN/Creatinine Ratio 13.5 (8-20) 07/30/18 05:42 Glucose 121 mg/dL (70-100) H 07/30/18 05:42 Calcium 8.8 mg/dL (8.6-10.3) 07/30/18 05:42
--- NOTE | 2018-07-30 13:38 | DS ---
Amended report to enter cosigning physician. CC: Dr. Edmundo Nguyen* DISCHARGE SUMMARY: DATE OF ADMISSION: 07/29/18 DATE OF DISCHARGE: 07/30/18 SURGEON: Dr. Edmundo Nguyen* (dictated by ADA Rand). CORPORATE ATTORNEY: ADA Rand PRE-OP DIAGNOSIS: Right shoulder traumatic arthropathy. OPERATIVE PROCEDURE: Right reverse shoulder arthroplasty. HISTORY: Mr. Holden is a 77-year-old male who has a long history of troubles with both of his shoulders. Many years ago, he had undergone rotator cuff repairs, these eventually did fail and both shoulders have significant rotator cuff tears. On plain x-ray, it could be seen how his humeral head sits on the underside of the acromion and he is mcfp out of joint. He has significant troubles with trying to lift the arms beyond 60 degrees with forward elevation and cannot even get to 45 degrees of abduction. He has undergone conservative treatment for years, which he has failed and has elected to undergo a right reverse shoulder arthroplasty. HOSPITAL COURSE: The patient was admitted to [facility] on . He underwent a right reverse total shoulder arthroplasty without complication. Postop day 1, he is well appearing, he is in no acute distress. Sling is in place, Cryo unit is in place. Shoulder dressing was changed. Incision clean, dry, intact with well approximated wound edges without erythema or discharge. This is redressed with Betadine, Telfa gauze and tape. Cryo/ Cuff were placed. Vital Signs: Temperature 97.3, pulse 88, respiratory rate 16, blood pressure 127/63, pulse ox 98. LABORATORY DATA: Hemoglobin 13.3, hematocrit 40. Sodium 138, potassium 4.2. Patient deemed to be medically and orthopedically stable for discharge home. DISCHARGE MEDICATIONS: Include: 1. Omeprazole 20 mg p.o. q.a.m. 2. Aspirin 81 mg daily. 3. Acetaminophen 975 p.o. q.8 hours p.r.n., max daily dose of acetaminophen is 4000 mg from all sources. 4. Ventolin 2 puffs inhaled q.6 hours p.r.n. 5. Nitroglycerin 0.4 mg sublingual q.5 minutes p.r.n. 6. PreserVision 1 tab p.o. b.i.d. 7. Docusate 100 mg p.o. q.a.m. 8. Spiriva Respimat 2.5 mcg/act, 2.5 one puff inhaled at bedtime. 9. Docusate 100 mg p.o. b.i.d. 10. Tramadol 50 mg p.o. q.6 hours p.r.n., max daily dose of 8. DISCHARGE INSTRUCTIONS: Discharged on 07/30/18 in stable condition. The patient will be nonweightbearing to the right arm. No active range of motion of the shoulder. Wear sling at all times except for when showering. Able to remove sling for showering postop day 3. Regular diet. Visiting home nurse to do wound check. Pain control, tramadol 50 mg 1 to 2 tabs every 6 hours as needed for pain, max of 8 tabs per day. Please follow up with Dr. Nguyen in 4 weeks. Call for an appointment. ADA LOOMIS [id number]/[facility] #: [id number] MTDGaby
== END 2018-07-30 13:18 | disposition home or self-care (01) ==
LOC: AA 08:44 → INTOOBSV 08:44 → SSU 13:13
PROVIDERS: ADMIT Orthopaedic Surgery; ATTEND Orthopaedic Surgery
DX: M12.511 Traumatic arthropathy, right shoulder (principal); T14.90XS Injury, unspecified, sequela; X58.XXXS Exposure to other specified factors, sequela; Z79.82 Long term (current) use of aspirin; Z88.0 Allergy status to penicillin; Z87.891 Personal history of nicotine dependence
CPT/HCPCS: 36415; 80048; 85014; 85018; 85048; 85049; 87641; A9270-GY; C1713; C1776; G0378; G8978-GP-CI; G8979-GP-CI; G8980-GP-CI; G8987-GO-CJ; G8988-GO-CJ; G8989-GO-CJ; J0690; J1100; J1644; J1885; J2250; J2405; J2704; J2795; J3010